=== PATIENT | female | born 1960 | race Two or more races ===

== ENCOUNTER 2017-02-26 08:08 | Inpatient (IN) | payer BC ==
[2017-02-23 12:40] LABS: Basophils # (auto) 0 uL; Basophils % (auto) 0.3 % (0.0-2.0); DEFINITIVE VIEW TRANSMISSION; Eosinophils % (auto) 8.5 % (0.0-7.0); Hematocrit 47.3 % (36.0-46.0); Hemoglobin 15.8 g/dL (12.2-16.2); Lymphocytes # (auto) 1.5 uL; Lymphocytes % (auto) 12.9 % (10.0-50.0); Mean Corpuscular Hgb Conc. 33.4 g/dL (32.0-36.0); Mean Corpuscular Volume 92.8 fL (80.0-100.0); Mean Platelet Volume 8.8 fL (7.4-10.4); Monocytes # (auto) 0.6 uL; Monocytes % (auto) 5.4 % (0.0-12.0); Neutrophils # (auto) 8.8 uL; Neutrophils % (auto) 72.9 % (37.0-80.0); Platelet Count (auto) 283 10^3/uL (140-450); Red Cell Distribution Width 14.6 % (11.6-16.0)
[2017-02-23 12:54] LABS: Urine Bilirubin Negative (Negative); Urine Blood Negative /uL (Negative); Urine Color Yellow (Yellow); Urine Glucose Normal (Normal); Urine Ketone Negative (Negative); Urine Nitrite Negative (Negative); Urine Urobilinogen Normal (Negative)
[2017-02-23 12:56] LABS: INR 0.96 (0.9-1.15); Partial Thromboplastin Time 27.7 sec (22.64-33.71); Prothrombin Time 10.4 sec (9.37-12.3)
[2017-02-23 14:16] LABS: Albumin 3.9 g/dL (3.4-5.0); BUN/Creatinine Ratio 10.3; Bilirubin, Total 0.7 mg/dL (0.2-1.0); Calcium 8.5 mg/dL (8.5-10.1); Potassium 4.1 mmol/L (3.5-5.1)
[~2017-02-26] VITALS: Ht 170.2 cm; Wt 75.6 kg
[~2017-02-26 08:08] MED LIST: ALBUAER3 IN; ASCO500C49 PO; CARI350T21 PO; CETI1TAB36 PO; OXYC80TA PO; PERCOT PO; PROG100C4 PO; THYR30TA PO
[2017-02-26] MEDS ORDERED: ceFAZolin 1GM/50ML D5W 50 ML IV ONE ×2 (08:33→13:30)
[2017-02-26] MEDS ORDERED: MEPERIDINE HCL (50 MG/ML) 1 ML VIAL ONE (12:49)
[2017-02-26] MEDS ORDERED: fentaNYL CITRATE 5 ML ONE ×2 (12:49→14:37)
[2017-02-26] MEDS ORDERED: fentaNYL CITRATE 100 MCG/2 ML VL ONE (12:49)
[2017-02-26] MEDS ORDERED: MIDAZOLAM HCL 1MG/1ML-2 ML VIAL ONE (12:49)
[2017-02-26] MEDS ORDERED: DEXAMETHASONE SOD PHOS 10MG/1ML VIAL INJ ONE (12:50)
[2017-02-26] MEDS ORDERED: PROPOFOL 10 MG/ML 20 ML IV ONE (12:50)
[2017-02-26] MEDS ORDERED: METHYLENE BLUE 0.5% 5MG/ML 10ml AMP IV ONE (12:57)
[2017-02-26] MEDS ORDERED: VASOPRESSIN 20 UNIT/ML ONE (12:58)
[2017-02-26] MEDS ORDERED: ACETAMINOPHEN 500 MG TAB PO PRN (13:30)
[2017-02-26] MEDS ORDERED: ONDANSETRON HCL 4 MG/2 ML VIAL IV PRN (13:30)
[2017-02-26] MEDS ORDERED: diphenhdrAMINE HCL 50 MG/1 ML VL IV PRN (13:30)
[2017-02-26] MEDS ORDERED: MORPHINE SULF INJ 2 MG/ML SYRINGE 1ML IV PRN ×3 (13:30→14:15)
[2017-02-26] MEDS ORDERED: NITROGLYCERIN 0.4 MG SL TAB SL PRN (13:30)
[2017-02-26] MEDS ORDERED: ALBUTEROL SULF 2.5 MG/0.5ML(0.5%) NEB SOLN NEB PRN (13:30)
[2017-02-26] MEDS ORDERED: ROCURONIUM 10MG/ML 10ML VIAL IV ONE (13:38)
[2017-02-26] MEDS ORDERED: KETOROLAC TROMETH 30 MG/ML 1ML VIAL IV ONE (14:15)
[2017-02-26] MEDS ORDERED: hydrALAZINE HCL 20 MG/ML VL IV PRN (14:15)
[2017-02-26] MEDS ORDERED: ONDANSETRON HCL 4 MG/2 ML VIAL IV ONE (14:15)
[2017-02-26] MEDS ORDERED: MIDAZOLAM HCL 1MG/1ML-2 ML VIAL IV PRN (14:15)
[2017-02-26] MEDS ORDERED: ePHEDrine SULFATE 50 MG/ML AMP IV PRN (14:15)
[2017-02-26] MEDS ORDERED: LABETALOL HCL 5 MG/ML 4ML SYRINGE IV PRN (14:15)
[2017-02-26] MEDS ORDERED: LIDOCAINE W/ EPINEPHRINE 1 % INJ 30ML ONE (14:56)
[2017-02-26] MEDS ORDERED: BUPIVACAINE 0.25% INJ 50ML VIAL ONE (14:56)
[2017-02-26] MEDS ORDERED: CONJ ESTROGENS 0.625MG/GM VAG CRM 30GM PV ONE (14:56)
[2017-02-26] MEDS ORDERED: LIDOCAINE HCL (LOCAL ANESTH.) 0.5 % 50ML MDV IJ ONE (15:34)
[2017-02-26] MEDS ORDERED: GLYCOPYRROLATE 0.2 MG/ML 1ML VIAL ONE (15:47)
[2017-02-26] MEDS: HYDROmorphone HCL 2 MG/ML VL IV PRN ×5 (16:48→22:57)
[2017-02-26] MEDS: SODIUM CHLORIDE 0.9% 1,000 ML IV SCH (19:37)
[2017-02-26 21:30] VITALS: BP 186/85
[2017-02-26] MEDS: oxyCODONE ER 20 MG TAB PO SCH (21:37)
[2017-02-26] MEDS: ONDANSETRON HCL 4 MG/2 ML VIAL IV PRN (22:51)
[2017-02-26 22:59] VITALS: BP 186/85
[2017-02-27] MEDS: OXYCODONE W/ ACETAMINOPHEN 5/325MG TABLET PO PRN ×2 (00:25→15:45)
[2017-02-27 02:42] VITALS: BP 186/85
[2017-02-27] MEDS: SODIUM CHLORIDE 0.9% 1,000 ML IV SCH ×2 (04:08→18:06)
[2017-02-27] MEDS: ONDANSETRON HCL 4 MG/2 ML VIAL IV PRN (04:16)
[2017-02-27] MEDS: HYDROmorphone HCL 2 MG/ML VL IV PRN ×3 (04:16→13:05)
[2017-02-27 05:28] VITALS: BP 146/71
[2017-02-27 06:28] LABS: Basophils # (auto) 0 uL; Basophils % (auto) 0.1 % (0.0-2.0); Eosinophils # (auto) 0 uL; Hematocrit 34.9 % (36.0-46.0); Hemoglobin 11.8 g/dL (12.2-16.2); Lymphocytes # (auto) 0.9 uL; Lymphocytes % (auto) 6.8 % (10.0-50.0); Mean Corpuscular Hemoglobin 31.1 pg (28.0-32.0); Mean Corpuscular Hgb Conc. 33.7 g/dL (32.0-36.0); Mean Corpuscular Volume 92.3 fL (80.0-100.0); Mean Platelet Volume 8.6 fL (7.4-10.4); Monocytes # (auto) 1.2 uL; Monocytes % (auto) 9.2 % (0.0-12.0); Neutrophils # (auto) 11.1 uL; Neutrophils % (auto) 83.9 % (37.0-80.0); Platelet Count (auto) 252 10^3/uL (140-450); Red Cell Distribution Width 14.6 % (11.6-16.0); White Blood Cell 13.2 10^3/uL (4.4-10.8)
[2017-02-27] MEDS: THYROID 60 MG TAB PO SCH (08:10)
[2017-02-27 09:00] VITALS: BP 153/78
[2017-02-27] MEDS: oxyCODONE ER 20 MG TAB PO SCH ×2 (10:28→21:29)
[2017-02-27 13:00] VITALS: BP 154/77
[2017-02-27 17:25] VITALS: BP 157/89
[2017-02-27] MEDS ORDERED: HYDROMORPHONE PCA IN NS 50 ML IV SCH (17:35)
[2017-02-27 22:00] VITALS: BP 146/89
[2017-02-28 05:00] VITALS: BP 154/97
[2017-02-28] MEDS ORDERED: SENNA 8.6 MG TAB PO ONE (08:00)
[2017-02-28] MEDS: SODIUM CHLORIDE 0.9% 1,000 ML IV SCH ×2 (09:14→23:22)
[2017-02-28 09:16] VITALS: BP 144/82
[2017-02-28] MEDS: oxyCODONE ER 20 MG TAB PO SCH ×2 (10:48→22:01)
[2017-02-28] MEDS: THYROID 60 MG TAB PO SCH (10:58)
[2017-02-28 13:33] VITALS: BP 140/87
[2017-02-28 17:25] VITALS: BP 141/96
[2017-02-28 22:00] VITALS: BP 151/77
[2017-02-28] MEDS: SENNA 8.6 MG TAB PO SCH (22:01)
[2017-03-01] MEDS: OXYCODONE W/ ACETAMINOPHEN 5/325MG TABLET PO PRN ×5 (01:58→19:12)
[2017-03-01] MEDS: ONDANSETRON HCL 4 MG/2 ML VIAL IV PRN ×2 (02:42→08:40)
[2017-03-01 05:09] VITALS: BP 152/80
[2017-03-01 10:08] VITALS: BP 157/84
[2017-03-01] MEDS: THYROID 60 MG TAB PO SCH (10:48)
[2017-03-01] MEDS: oxyCODONE ER 20 MG TAB PO SCH ×2 (10:48→21:49)
[2017-03-01 13:00] VITALS: BP 139/88
[2017-03-01] MEDS: SODIUM CHLORIDE 0.9% 1,000 ML IV SCH (15:01)
[2017-03-01 17:09] VITALS: BP 146/77
[2017-03-01] MEDS: SENNA 8.6 MG TAB PO SCH (21:48)
[2017-03-01 22:00] VITALS: BP 150/84
[2017-03-02] MEDS: SODIUM CHLORIDE 0.9% 1,000 ML IV SCH (03:18)
[2017-03-02 04:58] VITALS: BP 150/86
[2017-03-02] MEDS: OXYCODONE W/ ACETAMINOPHEN 5/325MG TABLET PO PRN (06:01)
[2017-03-02 08:10] VITALS: BP 147/88
[2017-03-02 09:00] VITALS: BP 147/88
[2017-03-02 10:00] VITALS: BP 147/88
== END 2017-03-02 10:55 | disposition home or self-care (01) | DRG 743 ==
LOC: SUR 08:08 → WEST WING 08:09
PROVIDERS: ADMIT Obstetrics & Gynecology; ATTEND Nurse Practitioner Acute Care
PROC: 0UT24ZZ Resection of Bilateral Ovaries, Percutaneous Endoscopic Approach (ICD-10-PCS; 2017-02-26)
PROC: 0UT74ZZ Resection of Bilateral Fallopian Tubes, Percutaneous Endoscopic Approach (ICD-10-PCS; 2017-02-26)
PROC: 8E0W4CZ Robotic Assisted Procedure of Trunk Region, Percutaneous Endoscopic Approach (ICD-10-PCS; 2017-02-26)
PROC: 0USG4ZZ Reposition Vagina, Percutaneous Endoscopic Approach (ICD-10-PCS; 2017-02-26)
PROC: 0UT94ZZ Resection of Uterus, Percutaneous Endoscopic Approach (ICD-10-PCS; principal; 2017-02-26 13:09)
DX: N81.2 Incomplete uterovaginal prolapse (principal); E07.9 Disorder of thyroid, unspecified; G43.909 Migraine, unspecified, not intractable, without status migrainosus; J45.909 Unspecified asthma, uncomplicated; G89.29 Other chronic pain; Z90.49 Acquired absence of other specified parts of digestive tract; Z88.8 Allergy status to other drugs, medicaments and biological substances; Z88.6 Allergy status to analgesic agent; Z91.041 Radiographic dye allergy status; Z79.899 Other long term (current) drug therapy
CPT/HCPCS: 36415; 80053; 81003; 85025; 85610; 85730; 86850; 86900; 86901; 87086; J0690; J1100; J2250; J2405; J2704; J3490